=== PATIENT | female | born 1965 | race African-American/Black ===

== ENCOUNTER 2022-12-13 10:10 | Outpatient (CLI) | payer SELFPAY | END 2022-12-13 10:11 | disposition home or self-care (01) | PROVIDERS: Visit Provider Physician Assistant | DX: Z11.3 Encounter for screening for infections with a predominantly sexual mode of transmission (principal) | CPT/HCPCS: 86592; 86703; 86803; 87340; 87491; 87591 ==

== ENCOUNTER 2022-12-17 14:09 | Outpatient (CLI) | payer SELFPAY | END 2022-12-17 14:10 | disposition home or self-care (01) | LOC: NFLDREF 12-18 10:33 | PROVIDERS: Visit Provider Physician Assistant | DX: Z11.3 Encounter for screening for infections with a predominantly sexual mode of transmission (principal) | CPT/HCPCS: 87491; 87591 ==

== ENCOUNTER 2023-12-19 12:50 | Outpatient (CLI) | payer OTHER, SELFPAY | END 2023-12-19 12:51 | disposition home or self-care (01) | PROVIDERS: Visit Provider Physician Assistant Medical | DX: I10 Essential (primary) hypertension (principal); E78.5 Hyperlipidemia, unspecified | CPT/HCPCS: 80053; 80061; 84443 ==

== ENCOUNTER 2024-02-28 16:23 | Outpatient (RCR) | payer OTHER, SELFPAY ==
--- NOTE | 2024-02-29 13:18 | PT.OPE ---
[facility] Start: 02/28/24 16:30 Freq: Status: Active Protocol: Document 02/28/24 16:35 BMS (Rec: 02/28/24 16:39 BMS [id number]) E-signed By Tamanna Rodarte PT Physical Therapy Outpatient Evaluation Insurance Information Recert Due Date 05/27/24 Insurance Name Other; See Comments Insurance Information/Comments [facility] Provider Fax Number internal Medical Diagnosis shoulder pain pain in unspecified shoulder M25.519 Treating Diagnosis pain in unspecified shoulder M25.519 Imaging Report Information shoulder xray 3 views 02/10/24 shoulder pain, no injury Technique: Three views of the right shoulder. Comparison: None. Findings: No acute displaced fracture or malalignment. Moderate degenerative changes of the acromioclavicular joint . [id number] degenerative changes of the glenohumeral joint. Referring MD Crystal Mccann PA-C NPI# [id number] Subjective Subjective pain started maybe 3-4 weeks ago out of nowhere, can't think of anything that triggered it. Pain with liftin gand reaching back, turnign head, using arm. have used ibuprofen, 6 tabs up to 3x/ day bc pain so bad, have not tried ice or heat. Thinking about chiropractor but havent gone yet. went to urgent care 02/16/24 they did injections (muscle) did not help really just for a little while. Had xray of shoulder. , some arthritis. Doctor recommends MRI, insurance wont cover so sent me here. 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 Do all the things to care for them ( alundry, meals etc). 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 abduct 100 degrees shoulder pain neck to elbow (not past) Strength MMT seated L UE 5/5 except ER 4/5 all R shoulder groups 4/[address] due to pain, worst with flex, abduct away from body and ER, R bicep tricep also painful Palpation severe tender over coracoid process, through pec, pec minor, scalenes and SCM. mod at UT levator and lateral shoulder, mild subscap and RC mm bellies. did not tolerate passive mobilizations Posture B scap protraction R more than L, arm held close to side or in closed chain position. Sensation/Reflexes DTR L=R tricep, bicep, brachioradialis very brisk Other/Pertinent Objective cervical compression/ distraction (-) AC compression painful unable to perform empty can due to pain Assessment Assessment/Impression Patient is pleasant 58 yo female referred to physical therapy for insidious onset of right shoulder pain ~ 3 weeks ago. She can recall no mechanism of injury, pain is getting worse (7/10 w movement ) with significant impact to daily life. 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 She has been to urgent care and had injections for pain (toradol?) which were very temporary. Is taking high doses of ibuprofen, did try Salonpas patch that may or may not have helped, has not used ice nor heat, is contemplating chiropractic, has not done any other intervention. Does have a history of L shoulder pain after work injury that did resolve with therapy. Patient presents with ROM restrictions that may be due to adhesive capsulitis and/or strain to RC , due to pain responses unable to fully determine source. Patient to work on exercises and elects to hold off on further appt at this time, will call if she finds insurance has approved. She may also benefit from further imaging such as MRI to better determine pain generator that is impacting her daily life. Primary Functional Limitations reach, lift, carry, reach behind, raising R arm Plan of Care Rehabilitation Potential Good Rehabilitation Potential Comments motivated, has hx of shoulder pain on left after injury at shelter in past and recovered well Physical Therapy Goals 1) Pt demo independence with HEP and self care/home management techniques for shoulder/elbow pain, increased ROM and strength for return to previous level of function. 2) Pt report pain <= 2/10 with reaching into cupboard without substitution. 3)Pt demo ability to don/doff clothes including shirts and coats without increased pain. 4) Pt demonstrate ability to lift 10# without contortion or substitution patterns of UE or trunk for carrying gallon of milk etc. 5) Pt demo ROM WNL combined flex, abduct and ER to perform grooming and hair brushing. 6) Pt report ability to sleep without waking from pain >2 nights per week in preferred position using appropriate positioning. Coordination/Communication With Referral Source Treatment Plan/Direct Interventions Electrical Stimulation,Heat, Ice/Cold/Vasopneumatic,Manual Therapy,Neuromuscular Re-ed, Self-Care/Home Management, Therapeutic Activities, Therapeutic Exercises,Traction (Mechanical),Ultrasound Frequency/Duration 1-2x/ week x 6 weeks pending ability to self manage and progress Patient Will Be Discharged From Therapy Completion of LTG(s),Skills Plateau,Independent w/HEP, Independently Progressing Evaluation Billing Untimed Code Treatment Minutes 25 Complexity Low Certification Information Initial Certification Date 02/28/24 Ending Certification Date 05/27/24 Provider Signature Required Communication Only-No Signature Required
== END 2024-06-27 23:59 | disposition home or self-care (01) ==
PROVIDERS: Visit Provider Physician Assistant
DX: M25.519 Pain in unspecified shoulder (principal); Z51.89 Encounter for other specified aftercare
CPT/HCPCS: 97110; 97140; 97161

== ENCOUNTER 2024-10-23 09:46 | Outpatient (CLI) | payer OTHER, SELFPAY ==
[2024-10-24 22:51] LABS: HPV Source Cervical/Vag; HPV, High Risk by TMA Not Detected
== END 2024-10-23 09:47 | disposition home or self-care (01) ==
PROVIDERS: Visit Provider Physician Assistant Medical
DX: Z00.01 Encounter for general adult medical examination with abnormal findings (principal); E78.2 Mixed hyperlipidemia; I10 Essential (primary) hypertension; Z11.51 Encounter for screening for human papillomavirus (HPV); Z12.4 Encounter for screening for malignant neoplasm of cervix
CPT/HCPCS: 80053; 80061; 84439; 84443; 87624; 87625; 88141; 88142